=== PATIENT | female | born 1945 | race African-American/Black ===

== ENCOUNTER → 2016-10-18 | Outpatient (CLI) | payer MEDICARE ==
--- NOTE | 2016-10-18 16:47 | RESP ---
DATE OF SERVICE: 10/18/2016 PULMONARY FUNCTION TEST The patient's FVC was 3.10 which is 112% predicted, FEV1 1.5 which is 75% predicted, the FEV1/FVC ratio was reduced. There was no response to bronchodilators. Lung volume showed total lung capacity of 141% predicted. Residual volume 184% predicted. Diffusion capacity 41% predicted. IMPRESSION: 1. Moderate obstructive airway disease. 2. No response to bronchodilators. 3. Lung volumes consistent with air trapping and hyperinflation. 4. [id number]-yvnrxlbv reduced diffusion capacity. DANELLE ORLANDO MD DR: THEODORA/kailee JOB#: [id number] / [id number] TYRELL Bearden MD
== END | disposition home or self-care (01) ==
LOC: PF 09:56
PROVIDERS: ATTEND Internal Medicine Pulmonary Disease
DX: R05 Cough (principal)
CPT/HCPCS: 94060; 94729

== ENCOUNTER 2017-12-03 13:54 | Emergency (ER) | payer MEDICARE ==
[2017-12-03 14:24] LABS: BILIRUBIN,URINE NEGATIVE (NEG); CLARITY,URINE TURBID; COLOR,URINE YELLOW; GLUCOSE,URINE NEGATIVE (NEG); NITRITE,URINE POSITIVE (NEG); PROTEIN,URINE >=300 mg/dL (NEG-TRACE); UROBILINOGEN,URINE 0.2 mg/dL (0.2 mg/dL)
[2017-12-03 14:35] LABS: WBC,URINE >40 /HPF (0-4)
[2017-12-03 14:39] LABS: BACTERIA,URINE FEW /HPF (0-FEW)
[2017-12-03 14:41] LABS: SQUAMOUS EPITHELIAL CELL,UR OCC /LPF
[2017-12-03] MEDS: IV NORMAL SALINE 1000ML BAG 1,000 ML IV (14:55)
[2017-12-03] MEDS: ONDANSETRON PF 4 MG/2 ML VIAL. IV (14:58)
[2017-12-03] MEDS: fentaNYL PF VIAL 100 MCG/2 ML VIAL IV (15:00)
[2017-12-03 15:14] LABS: ADD MAN DIFF? NO
[2017-12-03 15:15] LABS: BASO # 0.1 x10^3/uL (0.0-0.2); BASO % 1 % (0-3); EOS # 0.1 x10^3/uL (0.0-0.7); EOS % 1 % (0-3); HEMATOCRIT 39.6 % (36.0-47.0); HEMOGLOBIN 13.4 g/dL (12.0-15.5); LYMPH % 12 % (24-48); MEAN CORPUSCULAR HEMOGLOBIN 31 pg (25-35); MEAN CORPUSCULAR HGB CONC 34 g/dL (31-37); MEAN CORPUSCULAR VOLUME 93 fL (79-100); MONO % 12 % (0-9); NEUT # 6.3 x10^3uL (1.8-7.7); NEUT % 75 % (31-73); PLATELET COUNT 250 x10^3/uL (140-400); RED BLOOD COUNT 4.28 x10^6/uL (3.50-5.40); RED CELL DISTRIBUTION WIDTH 12.1 % (11.5-14.5); WHITE BLOOD COUNT 8.4 x10^3/uL (4.0-11.0)
[2017-12-03 15:25] LABS: ANION GAP 6 (6-14); BLOOD UREA NITROGEN 20 mg/dL (7-20); BUN/CREATININE RATIO 17 (6-20); CALCIUM 8.5 mg/dL (8.5-10.1); CARBON DIOXIDE 30 mmol/L (21-32); CHLORIDE 100 mmol/L (98-107); CREATININE 1.2 mg/dL (0.6-1.0); GFR 53.1; GLUCOSE 128 mg/dL (70-99); POTASSIUM 4.3 mmol/L (3.5-5.1); SODIUM 136 mmol/L (136-145)
[2017-12-03] MEDS ORDERED: CONTRAST GIVEN MC (15:30)
[2017-12-03 15:31] LABS: ALBUMIN 3.4 g/dL (3.4-5.0); ALBUMIN/GLOBULIN RATIO 0.8 (1.0-1.7); ALK PHOS 76 U/L (46-116); ALT (SGPT) 19 U/L (14-59); AST (SGOT) 17 U/L (15-37); LIPASE 121 U/L (73-393); TOTAL BILIRUBIN 0.5 mg/dL (0.2-1.0); TOTAL PROTEIN 7.8 g/dL (6.4-8.2)
[2017-12-03] MEDS: IOHEXOL 240 MG/ML 50ML VIAL. PO (15:42)
[2017-12-03] MEDS: IOHEXOL 300 MG/ML 100ML VIAL. IV (15:42)
== END 2017-12-03 16:37 | disposition home or self-care (01) ==
LOC: ER 13:54
DX: N39.0 Urinary tract infection, site not specified (principal); E78.00 Pure hypercholesterolemia, unspecified; I10 Essential (primary) hypertension; Z87.891 Personal history of nicotine dependence
CPT/HCPCS: 36415; 74177; 80053; 81001; 83690; 85025; 87086; 87186; 93005; 96365; 96375; 99285-25; J0690; J2405; J3010; J7030; Q9966; Q9967

== ENCOUNTER → 2018-02-11 | Outpatient (CLI) | payer MEDICARE ==
[2018-02-11] MEDS: ZOLPIDEM 5 MG TABLET. PO (22:42)
== END | disposition home or self-care (01) ==
LOC: SLPLAB 18:46
DX: G47.33 Obstructive sleep apnea (adult) (pediatric) (principal); G47.34 Idiopathic sleep related nonobstructive alveolar hypoventilation; G47.61 Periodic limb movement disorder; I10 Essential (primary) hypertension; E78.00 Pure hypercholesterolemia, unspecified; Z87.891 Personal history of nicotine dependence
CPT/HCPCS: 95810

== ENCOUNTER → 2018-04-16 | Outpatient (CLI) | payer MEDICARE ==
[2017-12-03 16:24] VITALS: BP 109/61
[~2018-04-16] MED LIST: LEVO500T59 PO; ZOLPIDEM 5 MG TABLET. PO ONE
--- NOTE | 2018-04-17 11:01 | SLEEP ---
DATE OF STUDY: 04/16/2018 ATTENDING PHYSICIAN: Dr. Trejo. REFERRING PHYSICIAN: Dr. Catracho Taylor. The patient is 72 years old who weighs 170 pounds with a BMI of 30. The patient had a previous sleep study and was found to have mild NONI with worsening during supine sleep. Total AHI 11 per hour with a supine AHI of 43 per hour. The patient also had severe PLMS and nocturnal hypoxia. The patient to return to the sleep lab for CPAP titration study. During the night study, the patient spent 410 minutes in bed and slept for 233 minutes with a sleep efficiency of 57%, which is low. Sleep latency was prolonged at 81 minutes with a REM latency of 259 minutes. Overall, sleep architecture showed normal stage 1 sleep, increased stage 2 sleep, increased slow wave and reduced REM sleep, which was only 2% of the total sleep time. EKG monitoring revealed normal sinus rhythm. Average heart rate of 58 beats per minute, no sustained arrhythmias were observed. PLMS were seen at index of 54 per hour and 4 per hour caused EEG arousals. The patient was started on CPAP at 5 cm water and titrated up to 9 cm water. At the final pressure, the patient slept for 206 minutes. The patient had supine as well as REM sleep. The patient's AHI was reduced to 2 per hour. Oxygen saturations during the initial part while on this pressures were in the mid to high 80s, but then towards the last 45 minutes to an hour, they remained above 88%. Lowest saturation was 86% at the final pressure. The patient used a large size nasal pillows. IMPRESSION: 1. Sleep apnea, diagnosed by previous sleep study. 2. Severe PLMS. RECOMMENDATIONS: 1. CPAP at 9 cm water completely eliminated the patient's sleep apnea and should be used on a nightly basis. 2. Follow up in 4-6 weeks to assess compliance with CPAP and to document clinical improvement. 3. Weight loss is advised. 4. Avoid [employer] depressants. 5. Caution regarding driving until symptoms of sleep apnea resolve with the use of CPAP. 6. The patient should also be further evaluated for symptoms of restless legs during the day. DANELLE ORLANDO MD DR: THEODORA/kailee JOB#: [id number] / [id number] DR HENRIK Porter GEORGE MD MTDD
== END | disposition home or self-care (01) ==
LOC: RT 18:50
PROVIDERS: ATTEND Internal Medicine Pulmonary Disease
DX: G47.33 Obstructive sleep apnea (adult) (pediatric) (principal); G47.61 Periodic limb movement disorder; I10 Essential (primary) hypertension; E78.00 Pure hypercholesterolemia, unspecified; Z87.891 Personal history of nicotine dependence
CPT/HCPCS: 95811